=== PATIENT | male | born 1950 | race Caucasian/White ===

== ENCOUNTER → 2017-12-09 10:59 | Outpatient (CLI) | payer SELFPAY ==
--- NOTE | 2017-12-09 11:07 | EKG12_ITS ---
Test Reason : PREOP Blood Pressure : / mmHG Vent. Rate : 065 BPM Atrial Rate : 065 BPM P-R Int : 162 ms QRS Dur : 092 ms QT Int : 418 ms P-R-T Axes : 038 -19 047 degrees QTc Int : 434 ms Normal sinus rhythm Normal ECG Confirmed by YASH JOLLY, CHEVY ([id number]), photographic editor TIM REESE ([id number]) on 12/10/2017 1:14:53 PM Referred By: [facility] Confirmed By:CHEVY BERRIOS MD
[2017-12-09 12:39] LABS: Hematocrit 41.4 % (40-54); Hemoglobin 14.3 g/dl (13.0-16.5); Mean Corp Hgb Conc 34.5 g/gl (32-36); Mean Corpuscular Hgb 29.8 pg (27.0-32.0); Mean Corpuscular Volume 86.3 fL (80-94); Mean Platelet Vol. 12.9 fl (6.2-12.0); Platelet Count 139 K/mm3 (150-450); RBC Distribution Width CV 12.6 % (11.6-14.6); RBC Distribution Width SD 39.4 fl (35.1-43.9); White Blood Count 6.9 K/mm3 (4.4-11.0)
[2017-12-09 12:42] LABS: Scan Indicated on CBC? Y/N NO
[2017-12-09 12:58] LABS: Anion Gap 8 (5-15); BUN 16 mg/dL (7-18); Calcium,Total 8.8 mg/dL (8.5-10.1); Chloride 104 mmol/L (98-107); Creatinine, Serum 0.84 mg/dL (0.70-1.30); EST Glomerular Filtration Rate 97 mL/min (>60); Est Glom Filt Rate - Afr Amer 117 mL/min (>60); Glucose 103 mg/dL (74-106); Sodium Level 139 mmol/L (136-145)
== END ==
PROVIDERS: Visit Provider Orthopaedic Surgery
DX: Z01.818 Encounter for other preprocedural examination (principal); Z01.810 Encounter for preprocedural cardiovascular examination
CPT/HCPCS: 36415; 80048; 85027; 93005

== ENCOUNTER 2020-11-25 11:34 | Outpatient (RCR) | payer MEDICARE, SELFPAY | END 2020-11-25 23:59 | LOC: IMMUN 11:34 | PROVIDERS: Visit Provider Family Medicine | DX: Z23 Encounter for immunization (principal) | CPT/HCPCS: 0011A; 0012A ==